=== PATIENT | male | born 1995 | race Caucasian/White ===

== ENCOUNTER 2018-11-07 03:01 | Emergency (ER) | payer SELFPAY ==
[~2018-11-07] VITALS: Ht 182.9 cm; Wt 120.2 kg
--- NOTE | 2018-11-07 03:10 | NUR ---
PT BIB RESCUE 909 FROM [facility] [employer]. EMT ENDORSES HE HAS BEEN CALLING SUICIDE HOTLINE AND STATES SI CONCERN DENIES PLAN. PT NAD, ABLE TO PROVIDE URINE SAMPLE COMPLIANT, CALM AND SMILING -FEVERS/CHILLS/NVD/HEADACHE PLACED ON ROOM NEAR NURSES' STATION. RN PLACED ON 1ON1 SITTER AT BEDSIDE. MANAGER CREDIT COLLECTIONS INFORMED.
--- NOTE | 2018-11-07 03:32 | NUR ---
SUPERVISOR PRODUCTION DEPARTMENT AT BEDSIDE MD AT BEDSIDE FOR HX AND PHYSICAL
[2018-11-07 03:40] LABS: BASOPHILS % (AUTO) 0.4 % (0.0-2.0); EOSINOPHILS # (AUTO) 0.2 K/uL (0.0-0.7); EOSINOPHILS % (AUTO) 1.6 % (0.0-7.0); HEMATOCRIT 48.9 % (36.7-47.1); HEMOGLOBIN 16.8 g/dL (12.5-16.3); LYMPHOCYTES # (AUTO) 5.7 K/uL (20.0-40.0); LYMPHOCYTES % (AUTO) 50.9 % (20.5-51.5); MEAN CORPUSCULAR HGB CONC 34 g/dL (32.5-36.3); MEAN CORPUSCULAR VOLUME 87.2 fL (73.0-96.2); MONOCYTES % (AUTO) 8.9 % (0.0-11.0); NEUTROPHILS # (AUTO) 4.3 K/uL (1.8-8.9); NEUTROPHILS % (AUTO) 38.2 % (38.5-71.5); PLATELET COUNT (AUTO) 275 K/uL (152-348); RED BLOOD CELL COUNT(AUTO) 5.61 MIL/uL (4.06-5.63); WHITE BLOOD COUNT (AUTO) 11.3 K/uL (3.6-10.2)
[2018-11-07 03:44] LABS: CARBON DIOXIDE 25 mmol/L (21-32); CHLORIDE 106 mmol/L (98-107); GLUCOSE 120 mg/dL (74-106); POTASSIUM 3.7 mmol/L (3.5-5.1); UREA NITROGEN, BLOOD 10 mg/dL (7-18)
[2018-11-07 03:46] LABS: *BILIRUBIN,URIN NEGATIVE (NEGATIVE); *BLOOD, URINE NEGATIVE (NEGATIVE); *CLARITY,URINE CLEAR (CLEAR); *COLOR,URINE YELLOW (YELLOW); *KETONES,URINE NEGATIVE (NEGATIVE); *UROBILINOGEN,URINE 0.2 E.U./dl (NORMAL); LEUKOCYTE ESTERASE ,URINE NEGATIVE (NEGATIVE); NITRITE, URINE NEGATIVE (NEGATIVE); UGLUCOSE NEGATIVE (NEGATIVE)
[2018-11-07 03:52] LABS: ETHANOL 318 MG/DL (0-0)
[2018-11-07 03:53] LABS: ALANINE AMINOTRANSFERASE 54 U/L (16-63); ALKALINE PHOSPHATASE 107 U/L (50-136); ASPARTATE AMINOTRANSFERASE 33 U/L (15-37); BILIRUBIN,DIRECT 0.1 mg/dL (0.0-0.2); BILIRUBIN,TOTAL 0.3 mg/dL (0.2-1.0); TOTAL PROTEIN, SERUM 8.2 g/dL (6.4-8.2)
[2018-11-07 03:56] LABS: *AMPHETAMINE, URINE NEGATIVE (NEGATIVE); *BARBITURATE, URINE NEGATIVE (NEGATIVE); *CANNABINOID, URINE NEGATIVE (NEGATIVE); *COCCAINE, URINE NEGATIVE (NEGATIVE); *OPIATE, URINE NEGATIVE (NEGATIVE); *PHENCYCLIDINE SCREEN,URINE NEGATIVE (NEGATIVE)
[2018-11-07 04:10] LABS: ACETAMINOPHEN < 2.0 ug/mL (10-30)
--- NOTE | 2018-11-07 04:16 | NUR ---
PT ASLEEP NAD MONITORED ACCORDINGLY SIDERAILSX2 UP, BED AT LOWEST POSITION 1ON1 SITTER AT BEDSIDE
--- NOTE | 2018-11-07 05:52 | NUR ---
BLOOD ALCOHOL LEVEL AT 0.32 ERMD AWARE. PT WILL BE UNDER OBSERVATION UNTIL KAYLA DROPS DOWN TO A POINT WHERE PSYCHIATRIC EVALUATION CAN BE DONE. PT ASLEEP, NAD SIDERAILSX2 UP, BED AT LOWEST POSITION WILL CONTINUE TO MONITOR Addendum: 11/07/18 at 0555 by MARICASTIL 1ON1 VIVIENNETER AT BEDSIDE
--- NOTE | 2018-11-07 09:06 | NUR ---
pt awake, axox4, says feels better and is ready to go home.pt walks in steady gait, normal speech.
--- NOTE | 2018-11-07 09:10 | NUR ---
Patient discharged to home in stable conditon. Written and verbal after care instructions given. Patient verbalizes understanding of instructions.pt walks in steady gait.pt using [employer] to go home.pt denies intention to harm self at this point.
[2018-11-07 09:13] VITALS: BP 129/77
== END 2018-11-07 09:10 | disposition home or self-care (01) ==
LOC: ER 03:06
DX: R45.851 Suicidal ideations (principal); F10.129 Alcohol abuse with intoxication, unspecified; F17.200 Nicotine dependence, unspecified, uncomplicated; Y90.8 Blood alcohol level of 240 mg/100 ml or more
CPT/HCPCS: 36415; 80048; 80076; 80307; 81001; 85025; 99284; G0480 ×2; G0481; A4663